=== PATIENT | female | born 1980 | race Caucasian/White ===

== ENCOUNTER 2017-09-19 21:05 | Inpatient (IN) | payer OTHER ==
[~2017-09-19 21:05] MED LIST: BUTORPHANOL TARTRATE 1 MG/ML VIAL IVPB ONE; ELECTROLYTE-148 SOLN 500 ML IV ONE; PROMETHAZINE HCL 25 MG/1 ML VIAL IVPB ONE
[2017-09-19] MEDS ORDERED: PROMETHAZINE HCL 25 MG/1 ML VIAL ONE (21:49)
[2017-09-19] MEDS ORDERED: BUTORPHANOL TARTRATE 1 MG/ML VIAL ONE ×2 (21:49)
[2017-09-19 21:51] LABS: BASO % 1.3 % (0-2.0); EOS % 0.2 % (0-4.5); HEMATOCRIT 30.2 % (32.4-45.2); HEMOGLOBIN 9.8 GM/dL (10.7-15.3); LYMPH % 13.9 % (8-40); MCH 26.4 pg (25.7-33.7); MCHC 32.4 g/dl (32.0-36.0); MEAN CELL VOLUME 81.7 fl (80-96); MEAN PLT VOLUME 9.4 fl (7.5-11.1); MONO % 4.1 % (3.8-10.2); NEUT % 80.5 % (42.8-82.8); PLATELET COUNT 270 K/MM3 (134-434); RDW 15.7 % (11.6-15.6); WHITE BLOOD COUNT 13.1 K/mm3 (4.0-10.0)
[2017-09-19] MEDS ORDERED: ELECTROLYTE-148 SOLN 500 ML IV ONE (22:05)
[2017-09-19 22:07] LABS: INR 0.93 (0.82-1.09); PROTHROMBIN TIME (PATIENT) 10.5 SEC (9.7-13.0)
[2017-09-19 22:14] LABS: ANION GAP 12 (8-16); BLOOD UREA NITROGEN 12 mg/dL (7-18); CALCIUM 8.4 mg/dL (8.5-10.1); CHLORIDE 106 mmol/L (98-107); CO2 20 mmol/L (21-32); CREATININE 0.7 mg/dL (0.55-1.02); GLUCOSE,RANDOM 88 mg/dL (74-106); POTASSIUM 4.2 mmol/L (3.5-5.1); SODIUM 138 mmol/L (136-145)
[2017-09-19] MEDS ORDERED: DEXTROSE 5%-LACTATED RINGERS 1,000 ML IV SCH (22:15)
--- NOTE | 2017-09-19 22:17 | HP ---
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: Alzheimer's, CVA, Dementia, Migraine, Multiple Sclerosis, Peripheral Neuropathy, Parkinson's, Seizure, Syncope, TIA, Vertigo, Other Cardiovascular: No: AFIB, Aneurysm, Aortic Insufficiency, Aortic Stenosis, CAD, CHF, Deep Vein Thrombosis, HTN, Hyperlipdemia, HI, Mitral Insufficiency, Mitral Stenosis, Murmur, Pulmonary Hypertension, Other Pulmonary: No: Asthma, Bronchitis, Cancer, COPD, O2 Dependent, Pneumonia, Previously Intubated, Pulmonary Embolus, Pulmonary Fibrosis, Sleep Apnea, Other Gastrointestinal: No: Ascites, Cancer, Constipation, Crohn's Disease, Diverticulitis, Diverticulosis, Esophageal Varices, Gastritis, GERD, GI Bleed, Hemorrhoids, Hiatal Hernia, Inflamatory Bowel Disease, Irritable Bowel Disease, Pancreatitis, Peptic Ulcer Disease, Ulcerative Colitis, Other Hepatobiliary: No: Cirrhosis, Cholelithiasis, Cholecystitis, Choledocholithiasis , Hepatitis A, Hepatitis B, Hepatitis C, Other Renal/: No: Renal Failure, Renal Inusuff, BPH, Cancer, Hematuria, Hemodialysis , Neurogenic Bladder, Renal Calculi, UTI, Other ...Para: 1 Heme/Onc: Yes: Anemia Psych: No: Addictions, Anxiety, Bipolar, Depression, Panic, Psychosis, Schizophrenia, Other Musculoskeletal: No: Bursitis, Chronic low back pain, Hemiparesis, Hemiplegia, Osteoarthritis, Paraplegia, Other Rheumatology: No: Fibromyalgia, Gout, Lupus, Rheumatoid Arthritis, Sarcoidosis, Vasculitis, Other ENT: No: Allergic Rhinitis, Sinusitis, Other Endocrine: No: Haralson's Disease, Leeds's Disease, Diabetes Insipidus, Diabetes Mellitus, Hyperparathyroidism, Hyperthyroidism, Hypothyroidism, Osteopenia, SIADH, Other Dermatology: No: Basal Cell, Cellulitis, Eczema, Melanoma, Psoriasis, Squamous Cell, Other - Past Surgical History Past Surgical History: Yes: None Hx Myomectomy: No Hx Transabdominal Cerclage: No - Smoking History Smoking history: Never smoked Aproximately how many cigarettes per day: 0 - Alcohol/Substance Use Hx Alcohol Use: No History of Substance Use: reports: None - Social History Usual Living Arrangement: Yes: With Spouse, With Child ADL: Independent History of Recent Travel: No Home Medications - Allergies Allergies/Adverse Reactions: Allergies Allergy/AdvReac Type Severity Reaction Status Date / Time No Known Allergies Allergy Verified 09/20/12 19:17 Review of Systems - Review of Systems Constitutional: reports: Other (labor) Eyes: reports: No Symptoms HENT: reports: No Symptoms Neck: reports: No Symptoms Cardiovascular: reports: No Symptoms Respiratory: reports: No Symptoms Gastrointestinal: reports: No Symptoms Genitourinary: reports: No Symptoms Breasts: reports: No Symptoms Reported Musculoskeletal: reports: No Symptoms Integumentary: reports: No Symptoms Neurological: reports: No Symptoms Endocrine: reports: No Symptoms Hematology/Lymphatic: reports: No Symptoms Psychiatric: reports: No Symptoms Pain Intensity: 8 Physical Exam - Maternity Constitutional: Yes: Well Nourished, No Distress, Calm Eyes: Yes: WNL, Conjunctiva Clear HENT: Yes: WNL, Atraumatic, Normocephalic Neck: Yes: WNL, Supple, Trachea Midline Cardiovascular: Yes: WNL, Regular Rate and Rhythm Lungs: Clear to auscultation, Normal air movement - Abdominal Exam/OB Fundal Height: 39 Number of Fetuses: Single Presentation: Vertex Contractions: Yes Regularity: Regular Intensity: Mod/Strong Monitor Mode: External Heart Rate (range): 140 Heart Rate Location: Midline Category: I Accelerations: Uniform Decelerations: None - Vaginal Exam/OB Vaginal Bleediing: No Speculum Exam: No Dilatation (cm): 4 Effacement (%): 80 Amniotic Membrane Status: Leaking Nitrazine Test: Positive Amniotic Fluid: Yes: Clear Presentation: Vertex/Position Station: -2 - Physical Exam Musculoskeletal: Yes: WNL Extremities: Yes: WNL Edema: No Integumentary: Yes: WNL Deep Tendon Reflex Grade: Normal +2 ...Motor Strength: WNL Psychiatric: Yes: WNL, Alert, Oriented - Labs Lab Results: CBC, BMP 09/19/17 21:45 Hemorrhage Risk Assessment - Risk Factors Medium Risk Factors: Yes: None High Risk Factors: Yes: None Risk Score: 1 Risk Level: Medium Risk Assessment/Plan 36yo female with at EGA 39w3d admitted in spontaneous labor. Fetus with Category I tracing. Labor in early active phase. Pt requested IV sedation. pPan to monitor labor progress.
[2017-09-19 22:23] VITALS: BMI 28.3
[2017-09-19] MEDS ORDERED: OXYTOCIN 20 UNITS in 0.9% NS 20 UNIT/1,000 ML INFUS.BAG IV ONE (23:00)
[2017-09-19] MEDS ORDERED: LIDOCAINE HCL 1% PRESERVATIVE FREE - 30ML VIAL ONE (23:00)
[2017-09-20] MEDS ORDERED: OXYTOCIN 10 UNITS/ML VIAL ONE (00:09)
[2017-09-20] MEDS: OXYTOCIN 20 UNITS in 0.9% NS 20 UNIT/1,000 ML INFUS.BAG IV SCH ×2 (00:09→01:15)
[2017-09-20] MEDS ORDERED: OXYTOCIN 20 UNITS in 0.9% NS 20 UNIT/1,000 ML INFUS.BAG IV ONE (01:26)
[2017-09-20] MEDS ORDERED: BENZOCAINE 20% 57 GM BOTTLE TP PRN (04:22)
[2017-09-20] MEDS ORDERED: BISACODYL 10 MG SUPP.RECT RC PRN (04:22)
[2017-09-20] MEDS ORDERED: METHYLERGONOVINE MALEATE 0.2 MG/1 ML AMP IM PRN (04:22)
[2017-09-20] MEDS ORDERED: WITCH HAZEL 50% (TUCKS) 40 PAD/JAR PAD TP PRN (04:22)
[2017-09-20] MEDS ORDERED: BENZOCAINE 28 GM HEMORRHOIDAL OINTMENT TP PRN (04:22)
[2017-09-20] MEDS ORDERED: D5W-LR W/ 20 UNITS OXYTOCIN 20 UNIT/1,000 ML INFUS.BAG IV SCH (04:30)
[2017-09-20] MEDS: ACETAMINOPHEN 325 MG TABLET (FP) PO PRN ×4 (05:45→22:43)
[2017-09-20] MEDS: IBUPROFEN 600 MG TABLET (FP) PO PRN ×4 (05:45→22:43)
[2017-09-20] MEDS: PRENATAL VITAMINS W/ FOLIC ACID TABLET (FP) PO SCH (10:14)
--- NOTE | 2017-09-20 16:15 | PN ---
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
--- NOTE | 2017-09-21 08:06 | PN ---
Post Progress Note - Subjective Subjective: No complaints Post Day: 1 Type of Delivery: Vital Signs: Vital Signs Temperature 98.3 F 09/20/17 21:46 Pulse Rate 78 09/20/17 21:46 Respiratory Rate 20 09/20/17 21:46 Blood Pressure 105/57 09/20/17 21:46 O2 Sat by Pulse Oximetry (%) 100 09/20/17 01:15 Breast Exam: Yes: Soft Uterus: Yes: Fundus Firm, Fundus below umbilicus, Non-tender Abdomen/GI: Yes: Abdomen soft, Passing flatus, Tolerating PO Lochia: Yes: Rubra Lochia, amount: Small Extremities: Yes: Calves non-tender Perineum: Yes: Intact Activity: Ambulating - Labs Labs: CBC WBC 13.1 K/mm3 (4.0-10.0) H 09/19/17 21:45 RBC 3.70 M/mm3 (3.60-5.2) D 09/19/17 21:45 Hgb 9.8 GM/dL (10.7-15.3) L D 09/19/17 21:45 Hct 30.2 % (32.4-45.2) L D 09/19/17 21:45 MCV 81.7 fl (80-96) 09/19/17 21:45 MCH 26.4 pg (25.7-33.7) D 09/19/17 21:45 MCHC 32.4 g/dl (32.0-36.0) 09/19/17 21:45 RDW 15.7 % (11.6-15.6) H 09/19/17 21:45 Plt Count 270 K/MM3 (134-434) D 09/19/17 21:45 MPV 9.4 fl (7.5-11.1) 09/19/17 21:45 Absolute Neuts (auto) 10.6 # 09/19/17 21:45 Neutrophils % 80.5 % (42.8-82.8) 09/19/17 21:45 Lymphocytes % 13.9 % (8-40) 09/19/17 21:45 Monocytes % 4.1 % (3.8-10.2) 09/19/17 21:45 Eosinophils % 0.2 % (0-4.5) 09/19/17 21:45 Basophils % 1.3 % (0-2.0) D 09/19/17 21:45 Nucleated RBC % 0 % (0-0) 09/19/17 21:45 Assessment/Plan 36 yo P2 s/p , doing well stable, afebrile. Asymptomatic for anemia. care instructions reviewed. Continue routine care. Ambulation encouraged Discharge instruction reviewed..
--- NOTE | 2017-09-21 08:17 | DS ---
Physical Exam-SALESPERSON SHOES Vital Signs: Vital Signs Temperature 97.9 F 09/21/17 07:20 Pulse Rate 77 09/21/17 07:20 Respiratory Rate 20 09/21/17 07:20 Blood Pressure 120/67 09/21/17 07:20 O2 Sat by Pulse Oximetry (%) 100 09/20/17 01:15 Constitutional: Yes: Well Nourished, No Distress, Calm Eyes: Yes: WNL, Conjunctiva Clear HENT: Yes: WNL, Atraumatic, Normocephalic Neck: Yes: WNL, Supple, Trachea Midline Cardiovascular: Yes: WNL, Regular Rate and Rhythm Respiratory: Yes: WNL, Regular, CTA Bilaterally Gastrointestinal: Yes: WNL, Normal Bowel Sounds, Soft ...Rectal Exam: Yes: Deferred Renal/: Yes: WNL Pelvis: Yes: WNL External Genitalia: Yes: Normal Internal Exam Deferred: Yes ....Post : Yes: Uterus firm, Uterus non-tender Breast(s): Yes: WNL Musculoskeletal: Yes: WNL Extremities: Yes: WNL Edema: No Integumentary: Yes: WNL Neurological: Yes: WNL, Alert, Oriented ...Motor Strength: WNL Psychiatric: Yes: WNL, Alert, Oriented Labs: CBC, BMP 09/19/17 21:45 09/19/17 21:45 Delivery - Delivery Vaginal Delivery: No Problems, Spontaneous Type of Anesthesia: Local Episiotomy/Laceration: Vaginal Extension/lac, 2nd degree EBL (cc): 500 Delivery, Single - Stages of Labor Date 1st Stage Initiatied: 09/19/17 Time 1st Stage Initiated: 19:00 Date 2nd Stage Initiated: 09/19/17 Time 2nd Stage Initiated: 23:30 Date of Delivery: 09/20/17 Time of Delivery: 00:02 Date Placenta Delivered: 09/20/17 Time Placenta Delivered: 00:05 Placenta: Yes: Spontaneous, Normal Configuration - Condition of Infant 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 You may walk unlimited bev of and climb stairs. You may resume driving the car when you feel safe and comfortable behind the wheel. No sexual activity as instructed. Wound care If you have a bandage, leave it on, and keep dry for 48-72 hours. After that time discard the outer bandage. If they are tapes on the skin under the out of bandage leave them in place. They will peel off in the next 7 to 10 days. Do Not Peel them off. You may shower the day after surgery. If there are tapes present on the skin, you may shower over them. Diet There are no dietary restrictions. Eat healthy, high-fiber foods. Drink 6 to 8 glasses of liquid each day. This will assist in keeping your bowels are regular. Pain management You may take Tylenol or acetaminophen or Ibuprofen (for example, Motrin, Advil etc.) from my pain prescription medication is ordered should be taken as prescribed for moderate to severe pain. Call MD for any of the following: Severe pain not relieved by medication Fever of 101 or higher Excessive bleeding or drainage on dressing Inability to urinate Referrals: Jeramie Carter MD [Staff Physician] - Disposition: HOME - Home Medications Comprehensive Discharge Medication List: Ambulatory Orders Vitamins (Sjr) - 1 tab PO DAILY 09/20/17
[2017-09-21 08:59] LABS: BASO % 0.4 % (0-2.0); EOS % 1.2 % (0-4.5); HEMATOCRIT 22.2 % (32.4-45.2); HEMOGLOBIN 7.3 GM/dL (10.7-15.3); LYMPH % 17.4 % (8-40); MCH 27.2 pg (25.7-33.7); MCHC 32.7 g/dl (32.0-36.0); MEAN CELL VOLUME 83.2 fl (80-96); MEAN PLT VOLUME 9.4 fl (7.5-11.1); MONO % 4.5 % (3.8-10.2); NEUT % 76.5 % (42.8-82.8); PLATELET COUNT 215 K/MM3 (134-434); RBC 2.67 M/mm3 (3.60-5.2); RDW 16.1 % (11.6-15.6); WHITE BLOOD COUNT 10.8 K/mm3 (4.0-10.0)
[2017-09-21] MEDS ORDERED: DIPHTH,PERTUSS(ACELL),TET 0.5 ML DISP.SYRIN IM ONE (10:00)
[2017-09-21] MEDS: PRENATAL VITAMINS W/ FOLIC ACID TABLET (FP) PO SCH (11:25)
[2017-09-21] MEDS: FERROUS SO4 325 MG TABLET (FP) PO SCH (19:30)
[2017-09-21] MEDS ORDERED: SENNOSIDES/DOCUSATE COMBO (SENNA PLUS) TABLET (UD) PO PRN (22:00)
[2017-09-21] MEDS: ACETAMINOPHEN 325 MG TABLET (FP) PO PRN (22:10)
[2017-09-21] MEDS: IBUPROFEN 600 MG TABLET (FP) PO PRN (22:11)
[2017-09-22] MEDS: FERROUS SO4 325 MG TABLET (FP) PO SCH ×3 (06:46→12:24)
[2017-09-22 08:34] LABS: BASO % 0.5 % (0-2.0); EOS % 1.3 % (0-4.5); HEMATOCRIT 25.4 % (32.4-45.2); HEMOGLOBIN 8.3 GM/dL (10.7-15.3); LYMPH % 14.9 % (8-40); MCH 27.3 pg (25.7-33.7); MCHC 32.6 g/dl (32.0-36.0); MEAN CELL VOLUME 83.5 fl (80-96); MEAN PLT VOLUME 8.6 fl (7.5-11.1); MONO % 4.2 % (3.8-10.2); NEUT % 79.1 % (42.8-82.8); PLATELET COUNT 226 K/MM3 (134-434); RBC 3.04 M/mm3 (3.60-5.2); RDW 15.9 % (11.6-15.6); WHITE BLOOD COUNT 12.3 K/mm3 (4.0-10.0)
[2017-09-22 08:37] VITALS: BP 125/76; PULSE 73; TEMP 98.3
[2017-09-22] MEDS: PRENATAL VITAMINS W/ FOLIC ACID TABLET (FP) PO SCH (09:51)
--- NOTE | 2017-09-22 12:04 | PN ---
Post Progress Note Post Day: 2 Type of Delivery: Vital Signs: Vital Signs Temperature 98.3 F 09/22/17 08:35 Pulse Rate 73 09/22/17 08:35 Respiratory Rate 20 09/22/17 08:35 Blood Pressure 125/76 09/22/17 08:35 O2 Sat by Pulse Oximetry (%) 100 09/20/17 01:15 Breast Exam: Yes: Soft Uterus: Yes: Fundus Firm Abdomen/GI: Yes: Abdomen soft Lochia: Yes: Rubra Lochia, amount: Small Extremities: Yes: Calves non-tender Activity: Ambulating - Labs Labs: CBC WBC 12.3 K/mm3 (4.0-10.0) H 09/22/17 07:45 RBC 3.04 M/mm3 (3.60-5.2) L 09/22/17 07:45 Hgb 8.3 GM/dL (10.7-15.3) L D 09/22/17 07:45 Hct 25.4 % (32.4-45.2) L 09/22/17 07:45 MCV 83.5 fl (80-96) 09/22/17 07:45 MCH 27.3 pg (25.7-33.7) 09/22/17 07:45 MCHC 32.6 g/dl (32.0-36.0) 09/22/17 07:45 RDW 15.9 % (11.6-15.6) H 09/22/17 07:45 Plt Count 226 K/MM3 (134-434) 09/22/17 07:45 MPV 8.6 fl (7.5-11.1) 09/22/17 07:45 Absolute Neuts (auto) 9.7 # 09/22/17 07:45 Neutrophils % 79.1 % (42.8-82.8) 09/22/17 07:45 Lymphocytes % 14.9 % (8-40) 09/22/17 07:45 Monocytes % 4.2 % (3.8-10.2) 09/22/17 07:45 Eosinophils % 1.3 % (0-4.5) 09/22/17 07:45 Basophils % 0.5 % (0-2.0) 09/22/17 07:45 Nucleated RBC % 0 % (0-0) 09/22/17 07:45 Assessment/Plan 36yo PPD # 2 s/p VSS, Afebrile Doing well D/c home today NPV x 6wks RTO 4-6wks
== END 2017-09-22 14:00 | disposition home or self-care (01) | DRG 775 ==
LOC: JLDR 21:05 → J3W 09-20 01:45
PROVIDERS: ADMIT Obstetrics & Gynecology; ATTEND Obstetrics & Gynecology
PROC: 10E0XZZ Delivery of Products of Conception, External Approach (ICD-10-PCS; principal; 2017-09-20)
PROC: 0KQM0ZZ Repair Perineum Muscle, Open Approach (ICD-10-PCS; 2017-09-20)
PROC: 0W8NXZZ Division of Female Perineum, External Approach (ICD-10-PCS; 2017-09-20)
DX: O70.1 Second degree perineal laceration during delivery (principal); Z37.0 Single live birth; Z3A.39 39 weeks gestation of pregnancy
CPT/HCPCS: 36415; 59409; 71046-TC-FY; 80048; 85025; 85610; 85730; 86593; 86850; 86900; 86901; 90715

== ENCOUNTER 2019-05-22 20:14 | Emergency (ER) | payer OTHER ==
[2019-05-22 20:24] VITALS: BP 105/78; PULSE 76; TEMP 98.1; BMI 27.4
--- NOTE | 2019-05-22 21:09 | PDOC ---
History of Present Illness - General Chief Complaint: Chest Pain Stated Complaint: CHEST PAIN Time Seen by Provider: 05/22/19 21:05 History Source: Patient - History of Present Illness Timing/Duration: reports: other Past History - Past Medical History Allergies/Adverse Reactions: Allergies Allergy/AdvReac Type Severity Reaction Status Date / Time No Known Allergies Allergy Verified 05/22/19 20:24 Home Medications: Ambulatory Orders Vitamins (Sjr) - 1 tab PO DAILY 09/20/17 Asthma: No Cancer: No Cardiac Disorders: No COPD: No Diabetes: No HTN: No Seizures: No Thyroid Disease: No - Psycho Social/Smoking Cessation Hx Smoking Status: No Smoking History: Never smoked Have you smoked in the past 12 months: No Number of Cigarettes Smoked Daily: 0 Hx Alcohol Use: No Drug/Substance Use Hx: No Hx Substance Use Treatment: No Review of Systems - Review of Systems Constitutional: No: Chills, Fever HEENTM: No: Blurred Vision Respiratory: No: Shortness of Breath Cardiac (ROS): Yes: Chest Pain. No: Lightheadedness, Palpitations, Syncope ABD/GI: No: Nausea, Vomiting Neurological: Yes: Headache, Tingling. No: Numbness, Weakness, Dizziness *Physical Exam - Vital Signs Last Vital Signs Temp Pulse Resp BP Pulse Ox 98.1 F 76 18 105/78 100 05/22/19 20:22 05/22/19 20:22 05/22/19 20:22 05/22/19 20:22 05/22/19 20:22 - Physical Exam General Appearance: Yes: Appropriately Dressed. No: Apparent Distress HEENT: positive: Normal Voice. negative: Scleral Icterus (R), Scleral Icterus ( L) Neck: positive: Supple Respiratory/Chest: positive: Lungs Clear, Normal Breath Sounds. negative: Respiratory Distress Cardiovascular: positive: Regular Rate, S1, S2 Integumentary: positive: Dry, Warm Neurologic: positive: cutting machine offbearer II-XII NML intact, Fully Oriented, Alert, Normal Mood/ Affect, Motor Strength 5/5, Finger to Nose Heart Score/ECG Review - ECG Intrepretation Comment:: 05/22/19 21:57 Twelve-lead EKG was performed and reviewed by me. There is normal sinus rhythm with a normal rate. The axis is normal. The intervals are normal. There are no ST or T wave abnormalities. Impression: Normal twelve-lead EKG Medical Decision Making - Medical Decision Making 05/22/19 22:07 38 yo F, no sig hx, p/w multiple complaints. Complaining of vague headache that first started 6 days ago, on and off with mild lightheadedness and tingling of tongue. States headache goes away on its own and has not had to take any meds. No visual changes, nausea, vomiting or focal weakness. No recent head injury. No history of similar headache. Not currently per patient. Also complaining of substernal chest pain that started earlier today, lasted for several minutes and has since resolved. No shortness of breath, diaphoresis, nausea or vomiting. No illicit drug use. No palpitations, leg pain or swelling. No risk factors for DVT PE. See exam MEYER Since improved No red flags at this time Upreg neg -dc to f/u with PMD as needed CP today Since resolved Exam wnl EKG done and neg, PERCs out Dc to f/u with PMD as needed Discharge - Discharge Information Problems reviewed: Yes Clinical Impression/Diagnosis: Headache Qualifiers: Headache type: unspecified Headache chronicity pattern: acute headache Intractability: not intractable Qualified Code(s): R51 - Headache Chest pain Qualifiers: Chest pain type: unspecified Qualified Code(s): R07.9 - Chest pain, unspecified Condition: Improved Disposition: HOME - Follow up/Referral - Patient Discharge Instructions Patient Printed Discharge Instructions: DI for Headache, DI for Chest Pain Additional Instructions: Your exam showed no signs of serious condition at this time Your EKG was normal and your urine was negative here If symptoms continue, please follow-up with your PMD - Post Discharge Activity
--- NOTE | 2019-05-23 09:16 | EKG ---
Test Reason : Blood Pressure : / mmHG Vent. Rate : 083 BPM Atrial Rate : 083 BPM P-R Int : 138 ms QRS Dur : 080 ms QT Int : 374 ms P-R-T Axes : 017 076 050 degrees QTc Int : 439 ms NORMAL SINUS RHYTHM NORMAL ECG NO PREVIOUS ECGS AVAILABLE Confirmed by Abiel Dawson ([id number]) on 05/23/2019 9:16:50 AM Referred By: Confirmed By:Abiel Dawson
== END 2019-05-22 22:58 | disposition home or self-care (01) ==
LOC: JER 20:14
DX: R07.9 Chest pain, unspecified (principal); R51 Headache
CPT/HCPCS: 84703; 93005; 93010; 99283-25